=== PATIENT | female | born 1970 ===

== ENCOUNTER 2021-05-15 06:02 | Day surgery (SDC) | payer OTHER ==
[~2021-05-15 06:02] MED LIST: NORVASC5 MG PO; SYNTHROID88 MCG PO
[2021-05-15] MEDS ORDERED: ACETAMINOPHEN-1 EAC2 PO (10:51)
[2021-05-15] MEDS ORDERED: ULTRACET PO (10:52)
[2021-05-15] MEDS ORDERED: COLACE100 MG PO (10:52)
== END 2021-05-15 14:00 | disposition home or self-care (01) ==
LOC: CIR.AMB 06:02
PROVIDERS: ATTEND Obstetrics & Gynecology
DX: N83.291 Other ovarian cyst, right side (principal); N83.312 Acquired atrophy of left ovary; N80.0 Endometriosis of uterus; Z85.858 Personal history of malignant neoplasm of other endocrine glands; N73.6 Female pelvic peritoneal adhesions (postinfective); Z20.822 Contact with and (suspected) exposure to COVID-19